=== PATIENT | female | born 1965 | race African-American/Black ===

== ENCOUNTER 2020-03-19 13:06 | Inpatient (IN) | payer MEDICAID ==
[~2020-03-19] VITALS: Ht 157.5 cm; Wt 65.8 kg
[2020-03-19] MEDS ORDERED: ALBU6.7H9 IH (13:24)
[2020-03-19] MEDS ORDERED: PHEN100C4 PO (13:24)
[2020-03-19] MEDS ORDERED: [UNRECOGNIZED DRUG - REMARK] (13:24)
[2020-03-19] MEDS ORDERED: FLOV44 IH (13:24)
[2020-03-19] MEDS ORDERED: MONT5TAB13 PO (13:24)
[2020-03-19] MEDS ORDERED: ALBU4TAB6 PO (13:24)
[2020-03-19] MEDS ORDERED: KETOROLAC 30MG/ML VIAL IV STA (13:30)
[2020-03-19] MEDS ORDERED: SODIUM CHLORIDE 0.9% 1,000 ML IV ONE ×3 (13:30→17:27)
[2020-03-19] MEDS ORDERED: ONDANSETRON HCL 4MG/2ML INJ IV STA (13:30)
[2020-03-19 14:08] LABS: BASOPHILS % 0.3 % (0.0-2.0); EOSINOPHILS % 0.5 % (0.0-5.0); HEMATOCRIT. 36.7 % (36.0-48.0); HEMOGLOBIN. 12.7 g/dL (12.0-16.0); LYMPHOCYTES % 17.7 % (20.0-50.0); MEAN CORPUSCULAR HEMOGLOBIN 28.3 pg (28.0-32.0); MEAN CORPUSCULAR VOLUME 82.2 fL (81.0-99.0); MEAN PLATELET VOLUME 7.9 fl (7.4-10.4); MONOCYTES % 4.8 % (2.0-8.0); NEUTROPHILS % 76.7 % (40.0-76.0); PLATELET 273 x1000/uL (130-400); RED BLOOD CELL COUNT 4.47 mill/uL (4.2-5.4); RED CELL DISTRIBUTION WIDTH 15.4 % (11.6-14.6)
[2020-03-19 14:13] LABS: CHLORIDE 108 mEq/L (98-107)
[2020-03-19 14:28] LABS: INR 0.9; PROTHROMBIN TIME 10.3 sec (9.6-11.0)
[2020-03-19] MEDS ORDERED: CEFEPIME 1,000 MG in DEXTROSE 5% WATER 50 ML IV STA (15:11)
[2020-03-19] MEDS ORDERED: MORPHINE SULFATE 4 MG/ML CPJ (NOT FOR IM USE) IV ONE (15:15)
[2020-03-19] MEDS ORDERED: FAMOTIDINE 20MG/2ML VIAL IV SCH (15:15)
[2020-03-19] MEDS ORDERED: METRONIDAZOLE 500 MG PREMIX 100 ML IV ONE (15:15)
[2020-03-19] MEDS: POTASSIUM CHLORIDE INJ 40 MEQ in DEXT 5% WATER 250 ML IV ONE ×2 (16:00→17:50)
[2020-03-19 16:11] LABS: CLARITY URINE CLEAR (CLEAR); COLOR URINE YELLOW (YELLOW); KETONES URINE TRACE (NEGATIVE); LEUKOCYTE ESTERASE URINE 2+ (NEGATIVE); NITRITE URINE NEGATIVE (NEGATIVE); OCCULT BLOOD URINE NEGATIVE (NEGATIVE); PH URINE 5.5 (4.5-8.0); PROTEIN URINE 1+ (NEGATIVE); SPECIFIC GRAVITY URINE 1.023 (1.005-1.030)
[2020-03-19] MEDS ORDERED: ROCURONIUM BROMIDE 10MG/ML VIAL 5ML IV ONE (16:12)
[2020-03-19] MEDS ORDERED: FENTANYL CITRATE/PF 50MCG/ML 2ML VIAL ONE ×2 (16:12→16:57)
[2020-03-19] MEDS ORDERED: MIDAZOLAM HCL 2 MG/2 ML VIAL ONE (16:12)
[2020-03-19] MEDS ORDERED: ETOMIDATE 2MG/ML 10ML VIAL IV ONE (16:13)
[2020-03-19] MEDS ORDERED: EPHEDRINE SULFATE 50MG/ML VIAL ONE (16:13)
[2020-03-19] MEDS ORDERED: SUCCINYLCHOLINE CHLORIDE 200MG/10ML IV ONE (16:13)
[2020-03-19] MEDS ORDERED: PHENYLEPHRINE HCL 10 MG/ML 1ML (IV VIAL) IV ONE ×2 (16:13→16:17)
[2020-03-19] MEDS ORDERED: LIDOCAINE HCL/PF 1% 10 MG/ML 5ML VIAL ONE (16:13)
[2020-03-19 16:15] LABS: INR 0.9; PARTIAL THROMBOPLASTIN TIME 29.7 sec (23.4-31.0); PROTHROMBIN TIME 10.3 sec (9.6-11.0)
[2020-03-19] MEDS ORDERED: METRONIDAZOLE 500 MG PREMIX 100 ML IV SCH (16:15)
[2020-03-19] MEDS ORDERED: MORPHINE SULFATE 2 MG/ML CPJ (NOT FOR IM USE) IV PRN ×2 (16:15→17:30)
[2020-03-19] MEDS ORDERED: ONDANSETRON HCL 4MG/2ML INJ IV PRN ×2 (16:15→17:30)
[2020-03-19] MEDS ORDERED: SODIUM CHLORIDE 0.9% 10ML VIAL ONE (16:19)
[2020-03-19] MEDS ORDERED: BUPIVACAINE HCL 0.5% (5MG/ML) 50ML ONE (16:35)
[2020-03-19] MEDS ORDERED: ALBUMIN HUMAN 12.5G/250ML (5%) IV ONE (16:35)
[2020-03-19] MEDS ORDERED: KCL 20MEQ/100ML PREMIX 100 ML IV NR (16:45)
[2020-03-19] MEDS ORDERED: GLYCOPYRROLATE 0.2 MG/ML 2ML VIAL ONE (17:12)
[2020-03-19] MEDS ORDERED: NEOSTIGMINE METHYLSULFATE 1MG/ML 10 ML VIAL ONE (17:12)
[2020-03-19] MEDS: HYDROMORPHONE HCL/PF 2MG/ML CPJ IV PRN ×3 (17:49→18:19)
[2020-03-19 20:00] VITALS: BP 146/77
[2020-03-19 21:30] VITALS: BP 146/77
[2020-03-19] MEDS ORDERED: LEVOFLOXACIN 500MG PREMIX 100 ML IV SCH (21:30)
[2020-03-19] MEDS: FAMOTIDINE 20MG/2ML VIAL IV SCH (21:56)
[2020-03-19] MEDS: MORPHINE SULFATE 4 MG/ML CPJ (NOT FOR IM USE) IV PRN (21:57)
[2020-03-19] MEDS: DEXT 5%/0.45% NACL KCL 20MEQ/L 1,000 ML IV SCH (23:31)
[2020-03-19] MEDS: METRONIDAZOLE 500 MG PREMIX 100 ML IV SCH (23:32)
[2020-03-20] VITALS: BP 136/74
[2020-03-20] MEDS: MORPHINE SULFATE 4 MG/ML CPJ (NOT FOR IM USE) IV PRN ×5 (01:20→22:29)
[2020-03-20 04:00] VITALS: BP 150/82
[2020-03-20] MEDS: METRONIDAZOLE 500 MG PREMIX 100 ML IV SCH ×3 (05:58→22:33)
[2020-03-20] MEDS: DEXT 5%/0.45% NACL KCL 20MEQ/L 1,000 ML IV SCH ×2 (07:51→17:00)
[2020-03-20 08:00] VITALS: BP 152/84
[2020-03-20 09:06] LABS: *AMPHETAMINES SCREEN URINE NEGATIVE (NEGATIVE); *BARBITURATES SCREEN URINE NEGATIVE (NEGATIVE); *BENZODIAZEPINES SCREEN URINE NEGATIVE (NEGATIVE); *COCAINE SCREEN URINE PRESUMTIVE POSITIVE (NEGATIVE)
[2020-03-20 09:07] LABS: CANNABINOID URINE SCREEN NEGATIVE (NEGATIVE); METHADONE URINE SCREEN NEGATIVE (NEGATIVE); OPIATES URINE SCREEN PRESUMTIVE POSITIVE (NEGATIVE); PHENCYCLIDINE URINE SCREEN NEGATIVE (NEGATIVE)
[2020-03-20] MEDS: FAMOTIDINE 20MG/2ML VIAL IV SCH ×2 (09:18→21:11)
[2020-03-20] MEDS ORDERED: HYDROMORPHONE HCL/PF 2MG/ML CPJ IV PRN (10:15)
[2020-03-20] MEDS ORDERED: NALOXONE HCL 0.4 MG/ML 1ML VIAL IV PRN (10:15)
[2020-03-20] MEDS: QUETIAPINE FUMARATE 25MG TABLET PO SCH ×2 (11:35→21:12)
[2020-03-20 12:00] VITALS: BP 159/91
[2020-03-20] MEDS: CEFEPIME 2,000 MG in DEXT 5% WATER 100 ML IV SCH ×2 (12:30→21:10)
[2020-03-20] MEDS ORDERED: MORPHINE SULFATE 2 MG/ML CPJ (NOT FOR IM USE) IV PRN (13:30)
[2020-03-20 16:00] VITALS: BP 144/88
[2020-03-20 20:00] VITALS: BP 156/87
[2020-03-20] MEDS: PHENYTOIN SODIUM EXTENDED 100MG CAPSULE PO SCH (21:11)
[2020-03-21] VITALS: BP 141/87
[2020-03-21] MEDS: DEXT 5%/0.45% NACL KCL 20MEQ/L 1,000 ML IV SCH ×3 (03:47→23:43)
[2020-03-21 04:00] VITALS: BP 136/82
[2020-03-21] MEDS: METRONIDAZOLE 500 MG PREMIX 100 ML IV SCH ×3 (05:53→22:40)
[2020-03-21] MEDS: MORPHINE SULFATE 4 MG/ML CPJ (NOT FOR IM USE) IV PRN ×2 (06:39→13:44)
[2020-03-21 08:00] VITALS: BP 135/90
[2020-03-21] MEDS: QUETIAPINE FUMARATE 25MG TABLET PO SCH ×3 (08:29→21:32)
[2020-03-21] MEDS: GABAPENTIN 300MG CAPSULE PO SCH (08:29)
[2020-03-21] MEDS: FAMOTIDINE 20MG/2ML VIAL IV SCH ×2 (09:04→21:31)
[2020-03-21] MEDS: CEFEPIME 2,000 MG in DEXT 5% WATER 100 ML IV SCH ×2 (09:04→21:31)
[2020-03-21 12:00] VITALS: BP 146/90
[2020-03-21 16:00] VITALS: BP 138/90
[2020-03-21 20:00] VITALS: BP 136/93
[2020-03-21] MEDS: PHENYTOIN SODIUM EXTENDED 100MG CAPSULE PO SCH ×2 (21:32→22:44)
[2020-03-21] MEDS: PHENYTOIN SODIUM 300 MG in SODIUM CHLORIDE 0.9% 50 ML IV SCH (23:45)
[2020-03-22] VITALS: BP 138/95
[2020-03-22] MEDS: PHENYTOIN SODIUM 300 MG in SODIUM CHLORIDE 0.9% 50 ML IV SCH ×2 (00:42→21:00)
[2020-03-22 04:00] VITALS: BP 119/82
[2020-03-22] MEDS: MORPHINE SULFATE 4 MG/ML CPJ (NOT FOR IM USE) IV PRN ×3 (05:28→20:09)
[2020-03-22] MEDS: METRONIDAZOLE 500 MG PREMIX 100 ML IV SCH ×3 (05:58→22:00)
[2020-03-22 06:31] LABS: BASOPHILS % 0.4 % (0.0-2.0); EOSINOPHILS % 2.9 % (0.0-5.0); HEMATOCRIT. 37.4 % (36.0-48.0); HEMOGLOBIN. 12.8 g/dL (12.0-16.0); MEAN CORPUSCULAR HEMOGLOBIN 27.8 pg (28.0-32.0); MEAN CORPUSCULAR VOLUME 81.2 fL (81.0-99.0); MEAN PLATELET VOLUME 7.6 fl (7.4-10.4); MONOCYTES % 6.8 % (2.0-8.0); NEUTROPHILS % 65.9 % (40.0-76.0); PLATELET 322 x1000/uL (130-400); RED CELL DISTRIBUTION WIDTH 14.9 % (11.6-14.6)
[2020-03-22 06:42] LABS: CHLORIDE 111 mEq/L (98-107)
[2020-03-22 08:00] VITALS: BP 155/102
[2020-03-22] MEDS: QUETIAPINE FUMARATE 25MG TABLET PO SCH ×2 (09:00→20:09)
[2020-03-22] MEDS: FAMOTIDINE 20MG/2ML VIAL IV SCH ×2 (09:16→20:08)
[2020-03-22] MEDS: CEFEPIME 2,000 MG in DEXT 5% WATER 100 ML IV SCH ×2 (09:16→20:08)
[2020-03-22] MEDS: GABAPENTIN 300MG CAPSULE PO SCH (09:25)
[2020-03-22] MEDS: DEXT 5%/0.45% NACL KCL 20MEQ/L 1,000 ML IV SCH ×2 (09:29→19:00)
[2020-03-22 12:00] VITALS: BP 128/84
[2020-03-22 16:00] VITALS: BP 139/93
[2020-03-22 20:00] VITALS: BP 141/90
[2020-03-23] VITALS: BP 156/97
[2020-03-23] MEDS: METRONIDAZOLE 500 MG PREMIX 100 ML IV SCH ×4 (00:10→23:24)
[2020-03-23 04:00] VITALS: BP 145/89
[2020-03-23] MEDS: MORPHINE SULFATE 4 MG/ML CPJ (NOT FOR IM USE) IV PRN ×3 (04:18→19:15)
[2020-03-23] MEDS: DEXT 5%/0.45% NACL KCL 20MEQ/L 1,000 ML IV SCH ×2 (05:49→15:00)
[2020-03-23] MEDS: FAMOTIDINE 20MG/2ML VIAL IV SCH ×2 (09:04→21:28)
[2020-03-23] MEDS: QUETIAPINE FUMARATE 25MG TABLET PO SCH ×2 (09:04→21:29)
[2020-03-23] MEDS: GABAPENTIN 300MG CAPSULE PO SCH (09:04)
[2020-03-23] MEDS: CEFEPIME 2,000 MG in DEXT 5% WATER 100 ML IV SCH ×2 (09:04→21:28)
[2020-03-23 10:02] LABS: BASOPHILS % 0.4 % (0.0-2.0); EOSINOPHILS % 3.3 % (0.0-5.0); HEMATOCRIT. 36.1 % (36.0-48.0); HEMOGLOBIN. 12.2 g/dL (12.0-16.0); LYMPHOCYTES % 37.4 % (20.0-50.0); MEAN CORPUSCULAR HEMOGLOBIN 27.6 pg (28.0-32.0); MEAN CORPUSCULAR VOLUME 81.8 fL (81.0-99.0); MEAN PLATELET VOLUME 7.2 fl (7.4-10.4); MONOCYTES % 7.5 % (2.0-8.0); NEUTROPHILS % 51.4 % (40.0-76.0); PLATELET 288 x1000/uL (130-400); RED BLOOD CELL COUNT 4.41 mill/uL (4.2-5.4); RED CELL DISTRIBUTION WIDTH 14.9 % (11.6-14.6)
[2020-03-23 10:10] LABS: CHLORIDE 106 mEq/L (98-107)
[2020-03-23 16:00] VITALS: BP 122/71
[2020-03-23] MEDS: PHENYTOIN SODIUM 300 MG in SODIUM CHLORIDE 0.9% 50 ML IV SCH (21:00)
[2020-03-24] MEDS: DEXT 5%/0.45% NACL KCL 20MEQ/L 1,000 ML IV SCH (02:05)
[2020-03-24] MEDS: MORPHINE SULFATE 4 MG/ML CPJ (NOT FOR IM USE) IV PRN ×2 (02:19→10:35)
[2020-03-24 03:01] VITALS: BP 139/90
[2020-03-24 04:00] VITALS: BP 112/77
[2020-03-24] MEDS: METRONIDAZOLE 500 MG PREMIX 100 ML IV SCH (05:39)
[2020-03-24 08:00] VITALS: BP 124/80
[2020-03-24] MEDS: FAMOTIDINE 20MG/2ML VIAL IV SCH (10:22)
[2020-03-24] MEDS: GABAPENTIN 300MG CAPSULE PO SCH (10:22)
[2020-03-24] MEDS: QUETIAPINE FUMARATE 25MG TABLET PO SCH (10:22)
[2020-03-24 12:42] VITALS: BP 124/80
[2020-03-24] MEDS ORDERED: PANT40TA4 MT (13:52)
[2020-03-24] MEDS ORDERED: ACET650T37 MT (13:52)
[2020-03-24] MEDS ORDERED: HYDR-4001 MT (13:52)
== END 2020-03-24 14:40 | disposition home or self-care (01) | DRG 222 ==
LOC: ER 13:06 → 6EST 16:14 → EDBEDREQTM 16:20 → EDBEDREQSVC 16:20 → EDBEDREQ 16:20
PROVIDERS: ADMIT Internal Medicine; ATTEND Internal Medicine
PROC: 0DJ00ZZ Inspection of Upper Intestinal Tract, Open Approach (ICD-10-PCS; principal; 2020-03-19)
PROC: 0DU707Z Supplement Stomach, Pylorus with Autologous Tissue Substitute, Open Approach (ICD-10-PCS; 2020-03-19)
DX: K27.5 Chronic or unspecified peptic ulcer, site unspecified, with perforation (principal); I50.9 Heart failure, unspecified; E87.6 Hypokalemia; K57.90 Diverticulosis of intestine, part unspecified, without perforation or abscess without bleeding; J44.9 Chronic obstructive pulmonary disease, unspecified; N39.0 Urinary tract infection, site not specified; G40.909 Epilepsy, unspecified, not intractable, without status epilepticus; Z88.0 Allergy status to penicillin; Z88.5 Allergy status to narcotic agent; Z79.51 Long term (current) use of inhaled steroids; Z76.5 Malingerer [conscious simulation]
CPT/HCPCS: 36415; 74176; 80048; 80053; 80305; 81003; 84484; 85025; 86850; 86900; 87070; 87075; 93005; 97116; 97162; 97535; 99291; J0330; J0692; J1165; J1170; J1885; J1956; J2250; J2270; J2370; J2405; J2710; J3010; J3480; J3490; J7030; J7060; P9041